=== PATIENT | female | born 1990 | race Caucasian/White ===

== ENCOUNTER 2018-07-30 05:22 | Inpatient (IN) | payer BC ==
[2018-07-30] MEDS ORDERED: Oxytocin 10 Units/1 ML SDV ONE (06:04)
[2018-07-30] MEDS ORDERED: Oxytocin 10 Units/1 ML SDV IM ONE (06:13)
[2018-07-30] MEDS ORDERED: Benzocaine/Menthol 20%-0.5% Spray 56 GM Canister TOP PRN (06:48)
[2018-07-30] MEDS ORDERED: Docusate Sodium 100 MG Cap PO PRN (06:48)
--- NOTE | 2018-07-30 06:48 | PCM.LDHP ---
L&D History of Present Illness - General Date of Service: 07/30/18 Admit Problem/Dx: Patient Status Order with Admit Dx/Problem 07/30/18 05:29 Patient Status [ADT] Routine Admission Diagnosis/Problem Admission Diagnosis/Problem Source of Information: Patient - History of Present Illness Introduction:: 27 year old at 38w4d here in active labor. Presented at 7 cm. Progressed rapidly to complete. 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 Allergy Hives Verified 07/30/18 05:30 Home Medications: Home Meds ClonazePAM [KlonoPIN] 1 mg PO Q4HR PRN 03/10/17 [History] Past Medical History [employer] History: Reports: Psychiatric History: Reports: Anxiety Social & Family History - Family History Family Medical History: Noncontributory H&P Review of Systems - Review of Systems: Review Of Systems: See Below General: Reports: No Symptoms HEENT: Reports: No Symptoms Pulmonary: Reports: No Symptoms Cardiovascular: Reports: No Symptoms Gastrointestinal: Reports: No Symptoms Genitourinary: Reports: No Symptoms Musculoskeletal: Reports: No Symptoms Skin: Reports: No Symptoms Psychiatric: Reports: No Symptoms Neurological: Reports: No Symptoms Hematologic/Lymphatic: Reports: No Symptoms Immunologic: Reports: No Symptoms L&D Exam - Exam Exam: See Below - Vital Signs Weight: 63.049 kg - OB Specific Contraction Intensity: Moderate Heart Rate (FHR) Variability: Moderate (6-25 bmp) Presentation: Vertex - Esteves Score Esteves Score Cervix Position: Midposition Esteves Score Consistency: Medium Esteves Score Effacement: >80% Esteves Score Dilation: > 5 cm Esteves Score 's Station: -2 Esteves Score Total: 9 - Exam General: Alert, Oriented HEENT: PERRLA, Conjunctiva Clear, EACs Clear, EOMI, Hearing Intact, Mucosa Moist & [place], Nares Patent, Normal Nasal Septum, Posterior Pharynx Clear, TMs Clear Neck: Supple, Trachea Midline Lungs: Clear to Auscultation, Normal Respiratory Effort Cardiovascular: Regular Rate, Regular Rhythm GI/Abdominal Exam: Normal Bowel Sounds, Soft, Non-Tender, No Organomegaly, No Distention, No Abnormal Bruit, No Mass, Pelvis Stable Rectal Exam: Normal Exam, Normal Rectal Tone Genitourinary: Normal external exam, Normal bimanual exam, Normal speculum exam Back Exam: Normal Inspection, Full Range of Motion Extremities: Normal Inspection, Normal Range of Motion, Non-Tender, No Pedal Edema, Normal Capillary Refill Skin: Warm, Dry, Intact Neurological: Cranial Nerves Intact, Reflexes Equal Bilateral Psychiatric: Alert, Normal Affect, Normal Mood Problem List Initiated/Reviewed/Updated: Yes Orders Last 24hrs: Active Orders 24 hr Category Date Time Status Patient Status Manage Transfer [TRANSFER] Routine ADT 07/30/18 06:38 Ordered Patient Status [ADT] Routine ADT 07/30/18 05:29 Active Non Stress Test [RC] PER UNIT ROUTINE Care 07/30/18 05:29 Active Vital Signs [RC] PER UNIT ROUTINE Care 07/30/18 05:29 Active Resuscitation Status Routine Resus Stat 07/30/18 05:29 Ordered Assessment/Plan Comment:: Term labor. Rapid delivery with no IV in place. Doing great. Routine cares
--- NOTE | 2018-07-30 06:53 | PCM.SN ---
- Free Text/Narrative Note: Stage I - Patient presented in active labor. Progressed to complete with no IV. Stage II - continuous vaginal delivery of viable male weight 5 lbs. 15 oz. at 06 13 with Apgars of 8 and 9. Head delivered in controlled manner over intact perineum body and shoulders followed atraumatically tight nuchal cord reduced. Placed on maternal abdomen after about 60 seconds cord clamped and cut. Stage III - spontaneous vaginal delivery of intact placenta with three-vessel cord no lacerations estimated blood loss 150
[2018-07-30] MEDS: Ibuprofen 600 MG Tab PO PRN (20:24)
[2018-07-31] MEDS: Ibuprofen 600 MG Tab PO PRN (08:54)
--- NOTE | 2018-07-31 09:24 | PCM.DCSUM1 ---
Discharge Summary - Hospital Course Diagnosis: Stroke: No - Discharge Data Discharge Date: 07/31/18 Discharge Disposition: Home, Self-Care 01 Condition: Good - Patient Summary/Data Hospital Course: Stage I - Patient presented in active labor. Progressed to complete with no IV. Stage II - continuous vaginal delivery of viable male weight 5 lbs. 15 oz. at 06 13 with Apgars of 8 and 9. Head delivered in controlled manner over intact perineum body and shoulders followed atraumatically tight nuchal cord reduced. Placed on maternal abdomen after about 60 seconds cord clamped and cut. Stage III - spontaneous vaginal delivery of intact placenta with three-vessel cord no lacerations estimated blood loss 150 - Patient Instructions Diet: Usual Diet as Tolerated Activity: No Strenuous Activities Driving: May Drive Today Driving, Other: pelvic rest Showering/Bathing: July Shower Wound/Incision Care: Keep Operative Site/Wound Site Clean and Dry Notify Provider of: Fever, Increased Pain, Swelling and Redness, Drainage, Nausea and/or Vomiting - Discharge Plan *PRESCRIPTION DRUG MONITORING PROGRAM REVIEWED*: No *COPY OF PRESCRIPTION DRUG MONITORING REPORT IN PATIENT MARTINE: No Home Medications: Home Meds Albuterol Sulfate [Albuterol Sulfate Hfa] 2 puff INH PRN 07/30/18 [History] Loratadine/Pseudoephedrine [Claritin-D 24 Hour Tablet] 1 each PO PRN 07/30/18 [ History] Referrals: Ej Martin MD [Physician] - (2 week) - Discharge Summary/Plan Comment DC Time >30 min.: No - General Info Date of Service: 07/31/18 Functional Status: Reports: Pain Controlled - Review of Systems General: Reports: No Symptoms HEENT: Reports: No Symptoms Pulmonary: Reports: No Symptoms Cardiovascular: Reports: No Symptoms Gastrointestinal: Reports: No Symptoms Genitourinary: Reports: No Symptoms Musculoskeletal: Reports: No Symptoms Skin: Reports: No Symptoms Neurological: Reports: No Symptoms Psychiatric: Reports: No Symptoms - Patient Data Vitals - Most Recent: Last Vital Signs Temp 36.9 C 07/31/18 04:01 Pulse 64 07/31/18 04:01 Resp 14 07/31/18 04:01 BP 99/66 07/31/18 04:01 Pulse Ox 99 07/31/18 04:01 Weight - Most Recent: 63.049 kg Med Orders - Current: Current Medications Benzocaine/Menthol (Dermoplast Pain Relief [place]) 0 gm TOP ASDIRECTED PRN PRN Reason: Perineal Comfort Measure Docusate Sodium (Colace) 100 mg PO BID PRN PRN Reason: Constipation Ibuprofen (Motrin) 600 mg PO Q6H PRN PRN Reason: Mild pain or fever Last Admin: 07/31/18 08:54 Dose: 600 mg Discontinued Medications Oxytocin (Pitocin) Confirm Administered Dose 10 unit .ROUTE .STK-MED ONE Stop: 07/30/18 06:05 Last Admin: 07/30/18 20:46 Dose: Not Given Oxytocin (Pitocin) 10 unit IM ONETIME ONE Stop: 07/30/18 06:14 Last Admin: 07/30/18 06:20 Dose: 10 unit - Exam General: Reports: Alert, Oriented HEENT: Reports: Pupils Equal, Pupils Reactive, EOMI, Mucous Membr. Moist/[place] Neck: Reports: Supple Lungs: Reports: Clear to Auscultation, Normal Respiratory Effort Cardiovascular: Reports: Regular Rate, Regular Rhythm GI/Abdominal Exam: Normal Bowel Sounds, Soft, Non-Tender, No Organomegaly, No Distention, No Abnormal Bruit, No Mass, Pelvis Stable Back Exam: Reports: Normal Inspection, Full Range of Motion Extremities: Normal Inspection, Normal Range of Motion, Non-Tender, No Pedal Edema, Normal Capillary Refill Skin: Reports: Warm, Dry, Intact Wound/Incisions: Reports: Healing Well Neurological: Reports: No New Focal Deficit Psy/Mental Status: Reports: Alert, Normal Affect, Normal Mood
== END 2018-07-31 11:45 | disposition home or self-care (01) | DRG 560 ==
LOC: JD.OB 05:22 → JD.OBCHECK 05:22 → JD.OB 05:27 → OBSVTOIN 06:13
PROVIDERS: ADMIT Obstetrics & Gynecology; ATTEND Obstetrics & Gynecology
PROC: 10E0XZZ Delivery of Products of Conception, External Approach (ICD-10-PCS; principal; 2018-07-30)
DX: O99.344 Other mental disorders complicating childbirth (principal); O69.1XX0 Labor and delivery complicated by cord around neck, with compression, not applicable or unspecified; Z37.0 Single live birth; Z3A.38 38 weeks gestation of pregnancy; F41.9 Anxiety disorder, unspecified; O62.3 Precipitate labor; O99.52 Diseases of the respiratory system complicating childbirth; J45.909 Unspecified asthma, uncomplicated; Z87.891 Personal history of nicotine dependence; Z88.5 Allergy status to narcotic agent; Z88.1 Allergy status to other antibiotic agents
CPT/HCPCS: 59025; 59409; A9270-GY; J2590

== ENCOUNTER 2021-08-30 03:07 | Emergency (ER) | payer MEDICAID ==
[2021-08-30] MEDS ORDERED: Ketorolac 15 MG/ML SDV IM ONE (03:19)
[2021-08-30] MEDS ORDERED: Lidocaine 1% 20 ML MDV INJECT ONE (03:33)
[2021-08-30] MEDS ORDERED: Lidocaine 1% 10 ML MDV INJECT ONE (03:39)
== END 2021-08-30 04:35 | disposition home or self-care (01) ==
LOC: JD.ED 03:07
DX: S62.616A Displaced fracture of proximal phalanx of right little finger, initial encounter for closed fracture (principal); Z88.0 Allergy status to penicillin; Z88.5 Allergy status to narcotic agent; Y04.0XXA Assault by unarmed brawl or fight, initial encounter
CPT/HCPCS: 26725; 73130; 73140; 96372; 99283; J1885

== ENCOUNTER 2022-08-20 20:50 | Emergency (ER) | payer MEDICAID ==
[2022-08-20] MEDS ORDERED: Lidocaine 1% 10 ML MDV INJECT ONE (21:37)
== END 2022-08-20 22:15 | disposition home or self-care (01) ==
LOC: JD.ED 20:50
DX: S81.811A Laceration without foreign body, right lower leg, initial encounter (principal); W26.8XXA Contact with other sharp object(s), not elsewhere classified, initial encounter; Y93.02 Activity, running
CPT/HCPCS: 12002; 99282; J3490